=== PATIENT | female | born 1985 | race Caucasian/White ===

== ENCOUNTER 2021-08-25 19:21 | Emergency (ER) | payer BC, MEDICARE, OTHER ==
[2021-08-25 19:27] VITALS: BP 144/99; PULSE 123
[2021-08-25] MEDS ORDERED: LORazepam 2 MG/ML SDV ONE (19:38)
[2021-08-25] MEDS ORDERED: LORazepam 2 MG/ML SDV IM ONE (19:40)
== END 2021-08-25 22:22 | disposition home or self-care (01) ==
LOC: JD.ED 19:21
DX: R56.9 Unspecified convulsions (principal); Z72.0 Tobacco use; Z86.16 Personal history of COVID-19
CPT/HCPCS: 36415; 80053; 80177; 80201; 84703; 85025; 85027; 96372; 99285; J2060; 99284

== ENCOUNTER 2022-01-21 17:14 | Emergency (ER) | payer BC ==
[2022-01-21 18:39] VITALS: BP 143/95; PULSE 84
== END 2022-01-21 19:02 | disposition home or self-care (01) ==
LOC: JD.ED 17:14
DX: L24.3 Irritant contact dermatitis due to cosmetics (principal); Z86.16 Personal history of COVID-19
CPT/HCPCS: 99282; 99283